=== PATIENT | male | born 1965 | race Caucasian/White ===

== ENCOUNTER 2024-02-13 15:43 | Inpatient (IN) | payer BC, OTHER ==
[~2024-02-13] VITALS: Ht 182.9 cm; Wt 113.9 kg
[2024-02-13] MEDS: ACETAMINOPHEN 500 MG TAB PO ONE (18:49)
[2024-02-13 18:58] LABS: Base Excess -2.6 mmol/L (-2.0-2.0)
[2024-02-13 19:35] VITALS: PULSE 108; RESP 16; O2SAT 90
[2024-02-13 21:44] LABS: Basophils # (auto) 0 10 ^3/uL (0-0.2); Basophils % (auto) 0.4 % (0.0-2.0); Eosinophils # (auto) 0 10 ^3/uL (0-0.8); Hematocrit 38.6 % (41.0-53.0); Hemoglobin 12.8 g/dL (13.5-17.5); Lymphocytes # (auto) 0.7 10 ^3/uL (0.4-5.4); Mean Corpuscular Hemoglobin 29.3 pg (28.0-32.0); Mean Corpuscular Hgb Conc. 33.1 g/dL (32.0-36.0); Mean Corpuscular Volume 88.5 fL (80.0-100.0); Monocytes # (auto) 0.6 10 ^3/uL (0-1.3); Monocytes % (auto) 5.5 % (0.0-12.0); Neutrophils # (auto) 8.8 10 ^3/uL (1.6-8.6); Neutrophils % (auto) 87.1 % (37.0-80.0); Red Blood Cells 4.36 10^6/uL (4.5-5.90); Red Cell Distribution Width 13.1 % (11.8-14.3); White Blood Cell 10.1 10^3/uL (4.4-10.8)
[2024-02-13 21:46] LABS: Chloride 106 mmol/L (98-107); Potassium 4.4 mmol/L (3.5-5.1); Sodium 140 mmol/L (136-145)
[2024-02-13 21:47] LABS: Anion Gap 7 (5-15); Carbon Dioxide 27 mmol/L (20-30)
[2024-02-13 21:48] LABS: Calcium 9.4 mg/dL (8.5-10.1)
[2024-02-13 21:52] LABS: BUN/Creatinine Ratio 13.5 (10.0-20.0); Blood Urea Nitrogen 12 mg/dL (9-23); Glucose 122 mg/dL (74-106)
[2024-02-13] MEDS: VANCOMYCIN 1GM/200ML 200 ML IV ONE (22:44)
[2024-02-13] MEDS ORDERED: MORPHINE SULFATE INJ 2 MG/ml SYRG IV PRN ×2 (23:30)
[2024-02-13] MEDS ORDERED: HYDROcodone-ACET 5/325MG TAB PO PRN (23:30)
[2024-02-13] MEDS ORDERED: ONDANSETRON HCL 4 MG/2 ML VIAL IV PRN (23:30)
[2024-02-13] MEDS ORDERED: IPRATROPIUM BROM 0.5 MG/2.5ML INH SOL NEB PRN (23:30)
[2024-02-13] MEDS ORDERED: NITROGLYCERIN 0.4 MG SL TAB SL PRN (23:30)
[2024-02-13] MEDS ORDERED: ALBUTEROL SULF 2.5 MG/0.5ML(0.5%) NEB SOLN NEB PRN (23:30)
[2024-02-13 23:44] VITALS: BP 141/79; PULSE 106; RESP 19; TEMP 97.6; O2SAT 91
[2024-02-13] MEDS: PIPERACILLIN-TAZOB 3.375GM 100 ML IV ONE (23:53)
[2024-02-14] VITALS (11 sets, daily range): BP systolic 123–146; BP diastolic 65–82; PULSE 66–95; RESP 18–20; TEMP 97.5–97.9; O2SAT 91–96
[2024-02-14] MEDS: SOD CHL 0.45% 1,000 ML IV ONE (00:42)
[2024-02-14 05:12] LABS: Basophils # (auto) 0 10 ^3/uL (0-0.2); Basophils % (auto) 0.5 % (0.0-2.0); Eosinophils # (auto) 0 10 ^3/uL (0-0.8); Eosinophils % (auto) 0.1 % (0.0-7.0); Hematocrit 35.8 % (41.0-53.0); Hemoglobin 12.1 g/dL (13.5-17.5); Lymphocytes # (auto) 1.4 10 ^3/uL (0.4-5.4); Lymphocytes % (auto) 13.2 % (10.0-50.0); Mean Corpuscular Hgb Conc. 33.9 g/dL (32.0-36.0); Mean Corpuscular Volume 88.6 fL (80.0-100.0); Monocytes # (auto) 0.8 10 ^3/uL (0-1.3); Monocytes % (auto) 8.1 % (0.0-12.0); Neutrophils % (auto) 78.1 % (37.0-80.0); Red Blood Cells 4.04 10^6/uL (4.5-5.90); Red Cell Distribution Width 13.2 % (11.8-14.3); White Blood Cell 10.3 10^3/uL (4.4-10.8)
[2024-02-14 05:17] LABS: Chloride 106 mmol/L (98-107); Potassium 3.9 mmol/L (3.5-5.1); Sodium 139 mmol/L (136-145)
[2024-02-14 05:18] LABS: Anion Gap 4 (5-15); Carbon Dioxide 29 mmol/L (20-30)
[2024-02-14 05:19] LABS: Calcium 9.2 mg/dL (8.5-10.1)
[2024-02-14 05:24] LABS: BUN/Creatinine Ratio 14.3 (10.0-20.0); Blood Urea Nitrogen 13 mg/dL (9-23); Glucose 112 mg/dL (74-106)
[2024-02-14] MEDS ORDERED: SIMV5TAB14 PO (05:45)
[2024-02-14] MEDS: PIPERACILLIN-TAZOB 3.375GM 100 ML IV SCH (06:27)
[2024-02-14] MEDS: ENOXAPARIN SOD 40 MG/0.4 ML SYRINGE SC SCH (09:25)
[2024-02-14] MEDS: ACETAMINOPHEN 325 MG TAB PO PRN (14:02)
[2024-02-14] MEDS: IPRATROPIUM BROM 0.5 MG/2.5ML INH SOL NEB SCH (19:33)
[2024-02-14] MEDS: ALBUTEROL SULF 2.5 MG/0.5ML(0.5%) NEB SOLN NEB SCH (19:33)
[2024-02-14] MEDS: BUDESONIDE (INHALATION) 0.5 MG/2 ML NEB NEB SCH (19:34)
[2024-02-14] MEDS: DOCUSATE SOD 100 MG CAP PO PRN (20:07)
[2024-02-15] VITALS (7 sets, daily range): BP systolic 114–149; BP diastolic 70–86; PULSE 77–114; RESP 16–20; TEMP 98.2–99.1; O2SAT 92–99
[2024-02-15 06:35] LABS: Basophils # (auto) 0 10 ^3/uL (0-0.2); Basophils % (auto) 0.5 % (0.0-2.0); Eosinophils # (auto) 0.2 10 ^3/uL (0-0.8); Eosinophils % (auto) 2.1 % (0.0-7.0); Hematocrit 36.1 % (41.0-53.0); Hemoglobin 11.9 g/dL (13.5-17.5); Lymphocytes # (auto) 2.2 10 ^3/uL (0.4-5.4); Lymphocytes % (auto) 24.1 % (10.0-50.0); Mean Corpuscular Hemoglobin 29.2 pg (28.0-32.0); Mean Corpuscular Volume 88.3 fL (80.0-100.0); Monocytes # (auto) 0.8 10 ^3/uL (0-1.3); Monocytes % (auto) 8.9 % (0.0-12.0); Neutrophils # (auto) 5.9 10 ^3/uL (1.6-8.6); Neutrophils % (auto) 64.4 % (37.0-80.0); Nucleated Red Blood Cells % 0.1 %; Red Blood Cells 4.09 10^6/uL (4.5-5.90); Red Cell Distribution Width 13.3 % (11.8-14.3); White Blood Cell 9.2 10^3/uL (4.4-10.8)
[2024-02-15 06:45] LABS: Anion Gap 4 (5-15); Carbon Dioxide 29 mmol/L (20-30); Chloride 105 mmol/L (98-107); Potassium 3.9 mmol/L (3.5-5.1); Sodium 138 mmol/L (136-145)
[2024-02-15 06:47] LABS: Calcium 9.4 mg/dL (8.7-10.4)
[2024-02-15 06:51] LABS: BUN/Creatinine Ratio 14.4 (10.0-20.0); Blood Urea Nitrogen 14 mg/dL (9-23); Glucose 104 mg/dL (74-106)
[2024-02-15 08:52] LABS: Triglycerides 154 mg/dL (< 150)
[2024-02-15 08:53] LABS: LDL Cholesterol 148 mg/dL (< 100)
[2024-02-15 08:54] LABS: Cholesterol 225 mg/dL (< 200); HDL Cholesterol 56 mg/dL (40-59)
[2024-02-15 09:06] LABS: Bilirubin, Total 1.5 mg/dL (0.2-1.0)
[2024-02-15 10:17] LABS: COVID19 ANTIGEN SOFIA FIA NEGATIVE (NEGATIVE); Rapid Influenza A Negative (Negative); Rapid Influenza B Negative (Negative)
[2024-02-15 10:26] LABS: Urine Bacteria None Seen /hpf (None Seen)
[2024-02-15 11:05] LABS: Urine Blood Negative /uL (Negative); Urine Clarity Clear (Clear); Urine Color Light-Yellow (Yellow); Urine Protein, UAD Negative (Negative); Urine Specific Gravity 1.009 (1.001-1.035); Urine Urobilinogen Normal (Negative); Urine WBC <1 /hpf (0 - 3)
[2024-02-15] MEDS ORDERED: LEVO750T40 PO (12:32)
[2024-02-15] MEDS ORDERED: diphenhdrAMINE HCL 25 MG CAP PO ONE (12:45)
== END 2024-02-15 14:00 | disposition home or self-care (01) | DRG 193 ==
LOC: EDBD 15:43 → ER 15:43 → TELE 23:37 → TELE-WESTW 02-14 04:32
PROVIDERS: ADMIT Nurse Practitioner Family; ATTEND Nurse Practitioner Family
DX: J18.8 Other pneumonia, unspecified organism (principal); J96.01 Acute respiratory failure with hypoxia; R04.2 Hemoptysis; J84.10 Pulmonary fibrosis, unspecified; E78.5 Hyperlipidemia, unspecified; Z82.0 Family history of epilepsy and other diseases of the nervous system; Z80.3 Family history of malignant neoplasm of breast; Z79.899 Other long term (current) drug therapy
CPT/HCPCS: 36415; 36600; 71045; 71275; 76705; 80048; 80061; 81001; 82247; 82805; 83036; 83880; 84075; 84450; 84460; 84484; 85025; 87081; 87426; 87804; 93005; 94640; 96361; 96365; 96367; G0378; J2543